=== PATIENT | female | born 1980 | race Two or more races ===

== ENCOUNTER 2017-12-19 23:05 | Emergency (ER) | payer MEDICAID ==
[~2017-12-19] VITALS: Ht 154.9 cm; Wt 65.8 kg
[2017-12-19 23:25] VITALS: BP 120/81
[2017-12-20 00:08] LABS: Urine Bacteria MOD /hpf (None Seen); Urine Blood 1+ /uL (Negative); Urine Specific Gravity 1.018 (1.001-1.035); Urine WBC 97 /hpf (0 - 5)
[2017-12-20] MEDS ORDERED: cefTRIAXone SOD 1,000 MG VL IM ONE (03:15)
[2017-12-20] MEDS ORDERED: PHENAZOPYRIDINE HCL 100 MG TAB PO ONE (04:15)
== END 2017-12-20 04:28 | disposition home or self-care (01) ==
LOC: ER 23:05
DX: N39.0 Urinary tract infection, site not specified (principal)
CPT/HCPCS: 81001; 96372; 99283; J0696

== ENCOUNTER 2019-08-08 07:33 | Emergency (ER) | payer MEDICAID ==
[~2019-08-08] VITALS: Ht 154.9 cm; Wt 73.9 kg
[2019-08-08 08:14] LABS: Urine Bacteria MOD /hpf (None Seen); Urine Blood 3+ /uL (Negative); Urine Mucus FEW (None Seen); Urine WBC 17 /hpf (0 - 5)
[2019-08-08 12:25] VITALS: BP 126/72
== END 2019-08-08 12:40 | disposition home or self-care (01) ==
LOC: ER 07:33
DX: O23.41 Unspecified infection of urinary tract in pregnancy, first trimester (principal); Z3A.01 Less than 8 weeks gestation of pregnancy
CPT/HCPCS: 36415; 76801; 76817; 81001; 84702